=== PATIENT | female | born 1940 | race Caucasian/White ===

== ENCOUNTER 2016-09-21 22:29 | Emergency (ER) | payer OTHER ==
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
[2016-09-21] MEDS ORDERED: fentaNYL 100 MCG/2 ML INJ IVP ONE (23:46)
[2016-09-22] MEDS ORDERED: fentaNYL 100 MCG/2 ML INJ IVP ONE (00:11)
[2016-09-22] MEDS ORDERED: PROPOFOL 200 MG/20 ML VIAL IVP ONE (00:12)
[2016-09-22] MEDS ORDERED: NS 1,000 ML IV ONE (00:54)
[2016-09-22] MEDS ORDERED: HYDROmorphONE/DILAUDID 1 MG/ML INJ IVP ONE (02:09)
[2016-09-22 02:17] VITALS: PULSE 71
[2016-09-22 03:14] VITALS: BP 147/79; RESP 16; TEMP 98.1; O2SAT 98
== END 2016-09-22 03:14 | disposition short-term general hospital (02) ==
DX: S42.91XA Fracture of right shoulder girdle, part unspecified, initial encounter for closed fracture (principal); S01.511A Laceration without foreign body of lip, initial encounter; I10 Essential (primary) hypertension; Z85.3 Personal history of malignant neoplasm of breast; Z87.891 Personal history of nicotine dependence; W18.39XA Other fall on same level, initial encounter; Y99.8 Other external cause status; Y93.01 Activity, walking, marching and hiking
CPT/HCPCS: 96374; J1170; J2704; J3010